=== PATIENT | female | born 1940 | race Caucasian/White ===

== ENCOUNTER 2016-05-03 13:21 | Emergency (ER) | payer MEDICARE, BC ==
[2016-05-03] MEDS ORDERED: ONDANSETRON HCL INJ/PF 4 MG/2 ML SDV IV ONE (13:42)
[2016-05-03] MEDS ORDERED: DEXTROSE 50%-WATER 25 GM/50 ML DISP.SYRIN IV ONE (13:42)
[2016-05-03] MEDS ORDERED: MORPHINE SULFATE 10 MG/ML INJ IV ONE ×3 (13:42→17:14)
--- NOTE | 2016-05-03 13:44 | ER Document Report ---
ED Fall - General Mode of Arrival: Medic Information source: Patient, Relative TRAVEL OUTSIDE OF THE [place] IN LAST 30 DAYS: No - HPI Patient complains to provider of: Fall - Head Injury Occurred: Just prior to arrival Where: Outdoors Location of injury/pain: Head, Upper extremity, Lower extremity Prehospital interventions: C-collar <KAYLIE MENDOZA - Last Filed: 05/03/16 13:52> <YUNIOR LEWIS - Last Filed: 05/03/16 17:15> <MIHAELA WINN - Last Filed: 05/03/16 22:05> - General Chief Complaint: Head Injury Stated Complaint: FALL HEAD INJURY Notes: Patient is a 75-year-old female, with history of insulin dependent diabetes, presenting to the emergency department via EMS after falling outside on pavement just prior to arrival. Patient's son was carrying the patient to the car to take her to his house to get glucagon to administer to her because her blood glucose had dropped into the 30s. On the way to the car, patient's son states that he tripped over the curb and they both fell. Patient complains of head pain where she has an open wound with swelling. Patient has several other skin tears/abrasions over her extremities. EMS administered Gram D 50 en route. (KAYLIE MENDOZA) This 75-year-old female patient is brought to the emergency room by EMS after suffering a fall. She had been out to lunch with her family when her blood sugar dropped quite low into the 30s. Family member was carrying her to the car to go home and get glucagon when he tripped on a curb and drop her on her face and knees. She was already unresponsive prior to the fall so it is unknown if there was a loss of consciousness. She didn't wake up immediately to be D50 W administered by the EMS. She has been alert and oriented since then. She does suffer a contusion laceration to her left forehead, a very minor abrasion to her mid upper lip, just can abrasions or tears to the right palm and left elbow. There are also abrasions contusions with swelling and ecchymosis to both anterior knees. On further exam she was found to have a stable pelvis, but is quite tender to palpate the left flank and inferior ribs. The family reports she had a tetanus shot a few years ago when she broke a hip. She does have hypertension, stage IV renal failure, insulin-dependent diabetes, peripheral vascular disease with diabetic foot ulcer, diabetic gastroparesis, hypothyroid, and anemia of chronic disease. (YUNIOR LEWIS) - Related data Allergies/Adverse Reactions: Adhesive Bandage * [Adhesive Bandage] Adverse Reaction (Mild, Verified 08/30/14 11:22) Past Medical History - General Information source: Patient, Relative - Social History Smoking Status: Unknown if Ever Smoked Frequency of alcohol use: None Family History: Reviewed & Not Pertinent - Past Medical History Cardiac Medical History: Reports: Hx Hypertension, Hx Peripheral Vascular Disease Endocrine Medical History: Reports: Hx Diabetes Mellitus Type 2 Renal/ Medical History: Reports: Hx End Stage Renal Disease - Stage IV Past Surgical History: Reports: Hx Orthopedic Surgery - right hip 2015 - Immunizations Hx Diphtheria, Pertussis, Tetanus Vaccination: Yes Hx Pneumococcal Vaccination: 04/14/13 <KAYLIE MENDOZA - Last Filed: 05/03/16 13:52> Review of Systems - Review of Systems Constitutional: No symptoms reported, Other - Hypoglycemic EENT: No symptoms reported Cardiovascular: No symptoms reported Respiratory: No symptoms reported Gastrointestinal: No symptoms reported Genitourinary: No symptoms reported Female Genitourinary: No symptoms reported Musculoskeletal: See HPI, Joint pain, Leg swelling Skin: See HPI, Other - Abrasions and Skin tears over head and extremities. Hematologic/Lymphatic: No symptoms reported Neurological/Psychological: No symptoms reported -: Yes All other systems reviewed and negative <KAYLIE MENDOZA - Last Filed: 05/03/16 13:52> - Review of Systems EENT: Other - Blind. denies: No symptoms reported <YUNIOR LEWIS - Last Filed: 05/03/16 17:15> Physical Exam - General General appearance: Alert, Other - Appears uncomfortable. Blood Glucose 69. - HEENT Head: Normocephalic, Open wounds - L. Forehead crush wound, Tenderness Eyes: Normal Pupils: PERRL - Respiratory Respiratory status: No respiratory distress Chest status: Nontender Breath sounds: Normal Chest palpation: Normal - Cardiovascular Rhythm: Regular Heart sounds: Normal auscultation Murmur: No - Abdominal Inspection: Normal - Back Back: Normal - Extremities Elbow: Abrasion - skin tear over left lateral elbow Knee: Abrasion - Abrasions over R and L anterior knees with some edema and bruising. - Neurological Neuro grossly intact: Yes - Psychological Associated symptoms: Normal affect, Normal mood - Skin Skin Temperature: Warm Skin Moisture: Dry Skin Color: Other - See Extremity Exam <KAYLIE MENDOZA - Last Filed: 05/03/16 13:52> - HEENT Head: Open wounds - L. Forehead crush wound There is a stellate crush laceration to the left forehead which when closed measured 2 cm. There was crushed tissue and some superficial skin avulsions, there was no debris noted. Eyes: Other - Patient has severely impaired vision by history.. No: Normal Neck: Other - Tender posterior cervical neck. - Respiratory Chest status: Tender. No: Nontender Chest palpation: Tender - Patient is very tender to palpate the left posterior lateral inferior ribs.. No: Normal - Abdominal Bowel sounds: Normal Tenderness: Nontender, Other - Pelvis is stable and nontender to compression. - Extremities General upper extremity: Other - The right thenar Palm has a minor skin avulsion.. No: Normal inspection General lower extremity: Other - Left leg is chronically tender related to her diabetic foot ulcer problem. Hip: Normal - Both hips are nontender to palpate and to manipulate. <YUNIOR LEWIS - Last Filed: 05/03/16 17:15> Course <KAYLIE MENDOZA - Last Filed: 05/03/16 13:52> - Laboratory Result Diagrams: 05/03/16 14:47 05/03/16 14:47 - Diagnostic Test Radiology reviewed: Reports reviewed - see reports - Consults Dt. Jaiden Pillai Time consulted: 17:00 Consulted provider: other - Will accept on the trauma service at [facility]. - Transfer of Care Care transferred to following provider: Dr. Winn <YUNIOR LEWIS - Last Filed: 05/03/16 17:15> - Laboratory Result Diagrams: 05/03/16 14:47 05/03/16 14:47 <MIHAELA WINN - Last Filed: 05/03/16 22:05> - Re-evaluation Re-evalutation: 05/03/16 22:05 Patient was evaluated prior to transport. Family still requests DNR/DNI. Patient is still requiring nonrebreather nasal travel was removed. Otherwise patient has seemed to have stabilized for transport. No further seizure-like activity scene. GCS approximately 13-14. (MIHAELA WINN) - Vital Signs Vital signs: Temp Pulse Resp BP Pulse Ox 97.3 F 70 11 L 123/67 100 05/03/16 17:43 05/03/16 17:43 05/03/16 21:01 05/03/16 21:00 05/03/16 21:01 (YUNIOR LEWIS) (MIHAELA WINN) - Laboratory Laboratory results interpreted by me: 05/03/16 05/03/16 05/03/16 13:41 14:47 14:47 RBC 3.65 L Hgb 10.5 L Hct 33.3 L MCHC 31.5 L Lymphocytes % 12.8 L Eosinophils % 6.9 H Chloride 97 L Carbon Dioxide 32 H BUN 51 H Creatinine 2.22 H Est GFR ( Amer) 26 L Est GFR (Non-Af Amer) 22 L Glucose 148 H POC Glucose 69 L Magnesium 2.4 H Alkaline Phosphatase 141 H Urine Glucose (UA) 05/03/16 05/03/16 05/03/16 15:07 18:01 18:24 RBC Hgb Hct MCHC Lymphocytes % Eosinophils % Chloride Carbon Dioxide BUN Creatinine Est GFR ( Amer) Est GFR (Non-Af Amer) Glucose POC Glucose 226 H 259 H Magnesium Alkaline Phosphatase Urine Glucose (UA) 50 H (YUNIOR LEWIS) (MIHAELA WINN) - Transfer of Care Notes: 05/03/16 17:14 Pending transfer to [facility]. (YUNIOR LEWIS) Procedures - Laceration/Wound Repair Left Upper Face Time completed: 15:50 Wound length (cm): 2 Wound's Depth, Shape: Into muscle, Irregular, Stellate, Contused tissue Laceration pre-procedure: Sterile drapes applied, Other - Benzethonium chloride Anesthetic type: 1% Lidocaine w/epi Volume Anesthetic (mLs): 3 Wound explored: Clean, No foreign body removed Irrigated w/ Saline (mLs): 20 Wound Debrided: Minimal Wound Repaired With: Sutures Suture Size/Type: 5:0 Number of Sutures: 3 Layer Closure?: No Post-procedure wound care: Sterile dressing applied Post-procedure NV exam normal: Yes Complications: No <YUNIOR LEWIS - Last Filed: 05/03/16 17:15> Discharge <KAYLIE MENDOZA - Last Filed: 05/03/16 13:52> <YUNIOR LEWIS - Last Filed: 05/03/16 17:15> <MIHAELA WINN - Last Filed: 05/03/16 22:05> - Discharge Clinical Impression: Hypoglycemia due to insulin Fall Qualifiers: Encounter type: initial encounter Qualified Code(s): W19.XXXA - Unspecified fall, initial encounter Traumatic subarachnoid hemorrhage Qualifiers: Encounter type: initial encounter Loss of consciousness presence/duration: without LOC Qualified Code(s): S06.6X0A - Traumatic subarachnoid hemorrhage without loss of consciousness, initial encounter Contusion, knee Qualifiers: Encounter type: initial encounter Laterality: unspecified laterality Qualified Code(s): S80.00XA - Contusion of unspecified knee, initial encounter Skin tear of elbow without complication Qualifiers: Encounter type: initial encounter Laterality: left Qualified Code(s): S51.012A - Laceration without foreign body of left elbow, initial encounter Pneumonia Qualifiers: Pneumonia type: due to unspecified organism Laterality: right Lung location: upper lobe of lung Qualified Code(s): J18.1 - Lobar pneumonia, unspecified organism Contusion of rib on left side Qualifiers: Encounter type: initial encounter Qualified Code(s): S20.212A - Contusion of left front wall of thorax, initial encounter Chronic kidney disease Qualifiers: Chronic kidney disease stage: stage 4 (severe) Qualified Code(s): N18.4 - Chronic kidney disease, stage 4 (severe) Condition: Stable Disposition: [facility] Scribe Attestation: 05/03/16 17:09 I personally performed the services described in the documentation, reviewed and edited the documentation which was dictated to the scribe in my presence, and it accurately records my words and actions. (YUNIOR LEWIS) Scribe Documentation - Scribe Written by Scribe:: Kaylie Mendoza 05/03/2016 1343 acting as scribe for :: Yahaira <KAYLIE MENDOZA - Last Filed: 05/03/16 13:52>
[2016-05-03] MEDS ORDERED: LIDOCAINE 1%/EPINEPHRINE INJ 20 ML VIAL INJ ONE (13:49)
[2016-05-03 14:59] LABS: ABSOLUTE BASOPHILS # (AUTO) 0.1 10^3/uL (0.0-0.2); ABSOLUTE EOSINOPHILS # (AUTO) 0.6 10^3/uL (0.0-0.6); ABSOLUTE LYMPHOCYTES (AUTO) 1.1 10^3/uL (0.5-4.7); ABSOLUTE MONOCYTES (AUTO) 0.6 10^3/uL (0.1-1.4); ABSOLUTE NEUT (AUTO) 6.5 10^3/uL (1.7-8.2); BASOPHILS % (AUTO) 0.8 % (0-2); EOSINOPHILS % (AUTO) 6.9 % (0-6); HEMATOCRIT 33.3 % (36.0-47.0); HEMOGLOBIN 10.5 g/dL (12.0-15.5); HGB HCT DIFFERENCE -1.8; LYMPHOCYTES % (AUTO) 12.8 % (13-45); MEAN CORPUSCULAR HEMOGLOBIN 28.8 pg (27.0-33.4); MEAN CORPUSCULAR HGB CONC 31.5 g/dL (32.0-36.0); MEAN CORPUSCULAR VOLUME 91 fl (80-97); MONOCYTES % (AUTO) 6.5 % (3-13); RED BLOOD COUNT 3.65 10^6/uL (3.72-5.28); RED CELL DISTRIBUTION WIDTH 13.5 % (11.5-14.0); WHITE BLOOD COUNT 8.9 10^3/uL (4.0-10.5)
[2016-05-03 15:36] LABS: APPEARANCE,URINE CLEAR; BILIRUBIN,URINE NEGATIVE (NEGATIVE); GLUCOSE, URINE 50 mg/dL (NEGATIVE); KETONES,URINE NEGATIVE (NEGATIVE); LEUKOCYTE ESTERASE,URINE NEGATIVE (NEGATIVE); NITRITE,URINE NEGATIVE (NEGATIVE); PROTEIN,URINE NEGATIVE (NEGATIVE); URINE SPECIFIC GRAVITY 1.008; UROBILINOGEN,URINE NEGATIVE mg/dL (<2.0)
[2016-05-03 15:43] LABS: ALANINE AMINOTRANSFERASE 23 U/L (9-52); ALBUMIN 3.9 g/dL (3.5-5.0); ALKALINE PHOSPHATASE 141 U/L (38-126); ANION GAP 11 (5-19); ASPARTATE AMINO TRANSFERASE 31 U/L (14-36); BILIRUBIN,TOTAL 0.8 mg/dL (0.2-1.3); BLOOD UREA NITROGEN 51 mg/dL (7-20); CALCIUM 9.4 mg/dL (8.4-10.2); CARBON DIOXIDE 32 mmol/L (22-30); CHLORIDE 97 mmol/L (98-107); CREATININE RESULT 2.22 mg/dL (0.52-1.25); GLUCOSE 148 mg/dL (75-110); MAGNESIUM 2.4 mg/dL (1.6-2.3); POTASSIUM 3.9 mmol/L (3.6-5.0); TOTAL PROTEIN 7.3 g/dL (6.3-8.2)
[2016-05-03] MEDS ORDERED: AZITHROMYCIN 250 MG TABLET PO ONE (17:07)
[2016-05-03] MEDS ORDERED: CEFTRIAXONE 1 GM/D5W RTU 50 ML IV ONE (17:07)
[2016-05-03] MEDS ORDERED: LORAZEPAM INJ 2 MG/1 ML VIAL ONE (18:17)
[2016-05-03] MEDS ORDERED: LEVETIRACETAM 1000 MG/NACL-ISO 100 ML IV ONE (18:19)
--- NOTE | 2016-05-03 20:55 | EKG REPORT ---
SEVERITY:- NORMAL ECG - SINUS RHYTHM : Confirmed by: Steve Hunter MD 03-May-2016 20:55:10
[2016-05-03 23:12] VITALS: BP 164/84
--- NOTE | 2016-05-03 23:41 | ER Document Report ---
ED General - General Chief Complaint: Fall Stated Complaint: FALL HEAD INJURY Mode of Arrival: Medic TRAVEL OUTSIDE OF THE [place] IN LAST 30 DAYS: No - HPI Patient complains to provider of: fall head injury Notes: Patient had a fall with a head injury after a hypoglycemic episode was signed out to myself from after patient was found to have a small subarachnoid bleeds and possible pneumonia. Patient had been receiving antibiotics and was waiting for transfer to [facility]. Called to the patient' s bedside as patient had became unresponsive. Upon my entrance into room patient did have pulses but was apneic not breathing initially started to bag valve mask the patient. Examination patient revealed multiple abrasions pulses intact at a soft nontender pupils postsurgical patient unresponsive - Related Data Allergies/Adverse Reactions: Adhesive Bandage * [Adhesive Bandage] Adverse Reaction (Mild, Verified 08/30/14 11:22) Past Medical History - General Information source: Patient, Relative - Social History Smoking Status: Unknown if Ever Smoked Frequency of alcohol use: None Family History: Reviewed & Not Pertinent - Past Medical History Cardiac Medical History: Reports: Hx Hypertension, Hx Peripheral Vascular Disease Endocrine Medical History: Reports: Hx Diabetes Mellitus Type 2 Renal/ Medical History: Reports: Hx End Stage Renal Disease - Stage IV Psychiatric Medical History: Denies: Hx Depression Past Surgical History: Reports: Hx Orthopedic Surgery - right hip 2014 - Immunizations Hx Diphtheria, Pertussis, Tetanus Vaccination: Yes Hx Pneumococcal Vaccination: 04/14/13 Review of Systems - Review of Systems -: Yes ROS unobtainable due to patient's medical condition - Unresponsive Physical Exam - Vital signs Vitals: Temp Pulse Resp BP Pulse Ox 97.0 F 65 18 129/63 H 93 05/03/16 13:35 05/03/16 13:35 05/03/16 13:35 05/03/16 13:35 05/03/16 13:35 Interpretation: Normal - General General appearance: Unresponsive In distress: Severe - HEENT Head: Normocephalic. No: Atraumatic - Multiple facial abrasions Eyes: Normal Pupils: No: PERRL - Postsurgical Mouth/Lips: Normal - No foreign body seen patient's airway suctioned - Respiratory Respiratory status: Respiratory distress Breath sounds: Normal Chest palpation: Normal - Cardiovascular Rhythm: Regular Heart sounds: Normal auscultation Murmur: No - Abdominal Inspection: Normal Distension: No distension Bowel sounds: Normal Tenderness: Nontender Organomegaly: No organomegaly - Back Back: Normal, Nontender - Extremities General upper extremity: Nontender, Normal color, Normal temperature. No: Normal inspection - Abrasions General lower extremity: Normal inspection, Nontender, Normal color, Normal temperature - Neurological Douglas Coma Scale Eye Opening: None Douglas Coma Scale Verbal: None Douglas Coma Scale Motor: None Douglas Coma Scale Total: 3 - Skin Skin Temperature: Warm Skin Moisture: Dry Skin Color: Normal Course - Re-evaluation Re-evalutation: 05/03/16 23:37 Due to patient having acute intracranial bleed concerned patient was having a seizure. Oral airway was placed and the patient with no gag. Patient continued to have her story support with BVM. Dr. Trish Warner had a discussion with family members outside the room family member states that they would like to make the patient DNR/DNI due to this patient continued to undergo her story support through BVM. Due to possible seizure activity 0.5 mg of Ativan and a gram of Keppra or ordered. SPO2 did show hypoxia below 60. Continue to BVM the patient after approximately 2-3 minutes patient did return to have a gag oral airways was switched out with a nasal trumpet. Continue to BVM the patient. Patient started to have spontaneous respirations that initially were agonal and then increase to a more story rate. Patient began to moan and started to respond to painful stimuli. Patient slowly improved her mental status. Patient will switch from assisted BVM respirations to a nonrebreather. "Discussions again with the family continue want DNR/DNI. This was made by the . I did after this discussed with hospitalist concerned that with the patient having possible seizure activity and lack of neurosurgery neurology backup here patient was still benefit from treatment at tertiary care facility. I did notify Dr. Alonso ER physician excepting the patient agrees with this plan initially try to have your support take the patient to [facility] however do to whether this was unavailable. Patient did continue to require nonrebreather support however did maintain her saturations. I did repeat the patient's CT head and chest x-ray no other acute findings. These remain stable chest x-ray remained stable. Patient mental status did continue to improve. Upon transport patient continued to require 100% nonrebreather otherwise heart rate blood pressure remained stable. - Vital Signs Vital signs: Temp Pulse Resp BP Pulse Ox 97.3 F 70 16 164/84 H 100 05/03/16 17:43 05/03/16 17:43 05/03/16 22:04 05/03/16 22:04 05/03/16 22:04 - Laboratory Result Diagrams: 05/03/16 14:47 05/03/16 14:47 Laboratory results interpreted by me: 05/03/16 05/03/16 05/03/16 13:41 14:47 14:47 RBC 3.65 L Hgb 10.5 L Hct 33.3 L MCHC 31.5 L Lymphocytes % 12.8 L Eosinophils % 6.9 H Chloride 97 L Carbon Dioxide 32 H BUN 51 H Creatinine 2.22 H Est GFR ( Amer) 26 L Est GFR (Non-Af Amer) 22 L Glucose 148 H POC Glucose 69 L Magnesium 2.4 H Alkaline Phosphatase 141 H Urine Glucose (UA) 05/03/16 05/03/16 05/03/16 15:07 18:01 18:24 RBC Hgb Hct MCHC Lymphocytes % Eosinophils % Chloride Carbon Dioxide BUN Creatinine Est GFR ( Amer) Est GFR (Non-Af Amer) Glucose POC Glucose 226 H 259 H Magnesium Alkaline Phosphatase Urine Glucose (UA) 50 H Critical Care Note - Critical Care Note Total time excluding time spent on procedures (mins): 60 Comments: Time spent patient's bedside due to seizure activity restarted stress personally providing respiratory support with BVM oral airway then a nasal airway multiple discussions with family about patient's CODE STATUS also multiple discussions with transferring facility and transferring accepting attending Discharge - Discharge Clinical Impression: Hypoglycemia due to insulin Fall Qualifiers: Encounter type: initial encounter Qualified Code(s): W19.XXXA - Unspecified fall, initial encounter Traumatic subarachnoid hemorrhage Qualifiers: Encounter type: initial encounter Loss of consciousness presence/duration: without LOC Qualified Code(s): S06.6X0A - Traumatic subarachnoid hemorrhage without loss of consciousness, initial encounter Contusion, knee Qualifiers: Encounter type: initial encounter Laterality: unspecified laterality Qualified Code(s): S80.00XA - Contusion of unspecified knee, initial encounter Skin tear of elbow without complication Qualifiers: Encounter type: initial encounter Laterality: left Qualified Code(s): S51.012A - Laceration without foreign body of left elbow, initial encounter Pneumonia Qualifiers: Pneumonia type: due to unspecified organism Laterality: right Lung location: upper lobe of lung Qualified Code(s): J18.1 - Lobar pneumonia, unspecified organism Contusion of rib on left side Qualifiers: Encounter type: initial encounter Qualified Code(s): S20.212A - Contusion of left front wall of thorax, initial encounter Chronic kidney disease Qualifiers: Chronic kidney disease stage: stage 4 (severe) Qualified Code(s): N18.4 - Chronic kidney disease, stage 4 (severe) Condition: Stable Disposition: [facility]
== END 2016-05-03 22:00 | disposition short-term general hospital (02) ==
LOC: ER 13:21
DX: E09.649 Drug or chemical induced diabetes mellitus with hypoglycemia without coma (principal); Z79.4 Long term (current) use of insulin; S80.00XA Contusion of unspecified knee, initial encounter; S51.012A Laceration without foreign body of left elbow, initial encounter; J18.1 Lobar pneumonia, unspecified organism; S20.212A Contusion of left front wall of thorax, initial encounter; N18.4 Chronic kidney disease, stage 4 (severe); W19.XXXA Unspecified fall, initial encounter
CPT/HCPCS: 93005; 96376; 99291; 96375; 96365; 36415; 87040; 82962; 83735; 85025; 80053; 81001; 71020; 71010; 72110; 71100; 72070; 73560; 70450; 72125; 93010; A9270; J3490 ×2; J2270; J2060; J2405; J0696